=== PATIENT | female | born 1950 | race Caucasian/White ===

== ENCOUNTER → 2016-07-19 | Outpatient (CLI) | payer BC ==
--- NOTE | 2016-07-19 14:58 | US ---
EXAMINATION TYPE: US kidneys/renal and bladder DATE OF EXAM: 07/19/2016 COMPARISON: NONE CLINICAL HISTORY: R31.9 Hematuria. EXAM MEASUREMENTS: Right Kidney: 9.5 x 3.4 x 5.4 cm Left Kidney: 10.8 x 5.1 x 5.3 cm Right Kidney: No hydronephrosis or masses seen Left Kidney: No hydronephrosis or masses seen Bladder: wnl Bilateral Jets seen: Yes There is no evidence for hydronephrosis at this point in time. No nephrolithiasis is seen. No suspi cious solid or cystic masses are identified. The urinary bladder is anechoic. Bilateral ureteral je ts are seen. IMPRESSION: Unremarkable study if symptoms persist consider further investigation with CT urogram.
== END | disposition home or self-care (01) ==
LOC: RADUSWWP 14:02
PROVIDERS: ATTEND Family Medicine
DX: R31.9 Hematuria, unspecified (principal)
CPT/HCPCS: 76770

== ENCOUNTER → 2019-04-21 | Outpatient (CLI) | payer MEDICARE, OTHER | END | disposition home or self-care (01) | CPT/HCPCS: 70486 ==

== ENCOUNTER → 2019-07-01 | Outpatient (CLI) | payer MEDICARE, OTHER ==
--- NOTE | 2019-07-01 12:40 | MR ---
EXAMINATION TYPE: MR shoulder RT wo/w con DATE OF EXAM: 07/01/2019 COMPARISON: None HISTORY: Rt shoulder pain, 2 palpable masses, axillary/anterior, markers placed on both TECHNIQUE: Multiplanar, multisequence images of the right shoulder is performed with 5.5 mL intraveno us Gadavist gadolinium contrast. FINDINGS: There is a marker placed over the anterior soft tissues of the shoulder. There is a 5.7 cm intramuscular mass which demonstrates fat saturation. Findings felt to be suggestive of a lipoma or a typical lipoma. There is subcutaneous edema along the lateral margin of the shoulder which is nonspecific. There appe ars to be a complete rotator cuff tear with retraction to the level proximal to the AC joint. Intrasu bstance signal at the insertion of the subscapularis suspicious for at least partial tear although mo tion artifact limits assessment. A second marker was placed with no definable mass identified. There is shotty adenopathy in the axill a which has a benign appearance. Hypertrophic change of the AC joint noted. Bicipital tendon is well situated within the bicipital groove, however, the biceps tendon is not seen within the rotator interval and suspected to be torn. Assessment of bony labrum is limited due to motion artifact with no obvious tear. Suprascapular Notch has a normal appearance. There is a small joint effusion. Inferior glenohumeral ligament is intact. Small amount of fluid seen in the subacromial subdeltoid bursa. IMPRESSION: 1. The area of palpable abnormality anteriorly corresponds to 5.7 cm intramuscular mass most typical of a lipoma. Given it measures greater than 5 cm atypical lipoma also in the differential diagnosis. 2. The second area of palpable abnormality does not demonstrate definable mass. Occasionally there ca n be a lipoma with a imperceptible capsule which could influence its appearance by MRI. Follow-up ult rasound recommended. No definite mass by MRI. 3. Complete tear of the rotator cuff including the supraspinatus and infraspinatus tendons with retra ction. Near complete or complete tear of the subscapularis also suspected. 4. Nonvisualization of the biceps tendon within the rotator interval suspicious for tear.
== END | disposition home or self-care (01) ==
LOC: RADMRIMAIN 09:21
PROVIDERS: ATTEND Family Medicine
DX: D17.21 Benign lipomatous neoplasm of skin and subcutaneous tissue of right arm (principal); M75.121 Complete rotator cuff tear or rupture of right shoulder, not specified as traumatic; R22.31 Localized swelling, mass and lump, right upper limb
CPT/HCPCS: 73223; A9585

== ENCOUNTER 2021-09-06 06:14 | Day surgery (SDC) | payer MEDICARE, OTHER ==
[2021-09-02 15:41] VITALS: BMI 22.4
[~2021-09-06 06:14] MED LIST: LACTATED RINGERS 1,000 ML IV SCH; LIDOCAINE 1% (10MG/ML) FOR IV START INTRADERMA PRN
[2021-09-06 06:47] VITALS: TEMP 97.6
[2021-09-06] MEDS ORDERED: LIDOCAINE 2% INJ 20 MG/ML (2 ML VIAL) ONE (07:05)
[2021-09-06] MEDS ORDERED: PROPOFOL 10 MG/ML 20 ML VIAL IV ONE (07:05)
--- NOTE | 2021-09-06 07:23 | P.PCN ---
Date of Procedure: 09/06/21 Procedure(s) Performed: Brief history: Patient is a pleasant 71-year-old white female scheduled for an elective upper endoscopy as well as colonoscopy as a part of evaluation of long-standing history of GERD/chronic cough and screening for colon cancer Procedure performed: Esophagogastroduodenoscopy with biopsy Colonoscopy Preoperative diagnosis: Long-standing history of GERD Screening for colon cancer Anesthesia: MAC Procedure: After informed consent was obtained from the patient was brought into the endoscopy unit and IV sedation was administered by anesthesia under continuous monitoring. Initially upper endoscopy was done. The Olympus GF 160 video endoscope was inserted inserted into the mouth and esophagus intubated without any difficulty and was gradually advanced into the stomach and duodenum and carefully examined. The bulb and second part of the duodenum appeared normal. The scope was then withdrawn into the stomach adequately insufflated with air and upon careful examination the antrum and body, had multiple small gastric polyps in the biopsy. Mucosa of the cardia and fundus appeared normal. The scope was then withdrawn into the esophagus. The GE junction was located at 40 cm to the incisors. It appeared regular with no erythema erosions or ulcerations. Rest of the esophagus appeared normal. Patient tolerated the procedure well. At this time the patient continued to remain sedation. Initial digital rectal examination was normal. Olympus CF 160 video colonoscope was then inserted into the rectum and gradually advanced to the cecum without any difficulty. Careful examination was performed as the scope was gradually being withdrawn. The prep was excellent. The cecum, ascending colon, transverse colon, descending colon, sigmoid colon and rectum appeared normal. Retroflexion was performed in the rectum and no lesions were noted. Patient tolerated the procedure well. Impression: 1. Upper endoscopy revealed multiple small gastric polyps but no evidence of esophagitis or Jacobsen's esophagus 2. Colonoscopy was within normal limits with no evidence of colorectal neoplasia Recommendations: Findings of this examination were discussed with the patient as well as her family. She was advised to continue with omeprazole 20 mg daily and follow a ntireflux measures. Recommend repeat screening colonoscopy in 10 years.
[2021-09-06 07:30] VITALS: RESP 16
[2021-09-06 07:52] VITALS: BP 132/68; PULSE 67
== END 2021-09-06 08:16 | disposition home or self-care (01) ==
LOC: ORWHC2ENDO 06:14
PROVIDERS: ATTEND Internal Medicine Gastroenterology
DX: Z12.11 Encounter for screening for malignant neoplasm of colon (principal); K31.7 Polyp of stomach and duodenum; K21.9 Gastro-esophageal reflux disease without esophagitis; J32.9 Chronic sinusitis, unspecified; F41.9 Anxiety disorder, unspecified; J45.909 Unspecified asthma, uncomplicated; M19.90 Unspecified osteoarthritis, unspecified site; J33.9 Nasal polyp, unspecified; Z85.528 Personal history of other malignant neoplasm of kidney; Z90.5 Acquired absence of kidney; Z96.611 Presence of right artificial shoulder joint; Z98.890 Other specified postprocedural states; Z97.2 Presence of dental prosthetic device (complete) (partial); Z79.899 Other long term (current) drug therapy; Z88.6 Allergy status to analgesic agent
CPT/HCPCS: 88305; 43239; J2704; J2001; G0121

== ENCOUNTER → 2023-08-30 | Outpatient (CLI) | payer MEDICARE, OTHER ==
--- NOTE | 2023-09-03 11:16 | MM ---
Reason for Exam: Screening (asymptomatic). Last screening mammogram was performed 12 month(s) ago. Patient History: Menarche at age 13. First Full-Term at age 22. Postmenopausal. Maternal grandmother had breast cancer, age 70. Sister had breast cancer, age 60. Risk Values: Selina 5 year model risk: 3.7%. NCI Lifetime model risk: 9.9%. Prior Study Comparison: 02/13/2020 Bilateral MG 3D screening mammo w/cad, [facility]. 06/23/2021 Bilateral MG 3D screening mammo w/cad, [facility]. 08/24/2022 Bilateral MG 3D screening mammo w/cad, [facility]. Tissue Density: There are scattered areas of fibroglandular density. Findings: Analyzed By CAD. Right breast: There is no suspicious group of microcalcifications or new suspicious mass. Left breast: There is no suspicious group of microcalcifications or new suspicious mass. Overall Assessment: Negative, BI-RAD 1 Management: Screening Mammogram of both breasts in [address] [facility] will attempt to contact patient to return for supplemental views and ultrasound if indicated. Patient should continue monthly self-breast exams. A clinical breast exam by your physician is recommended on an annual basis. This exam should not preclude additional follow-up of suspicious palpable abnormalities. Note on Selina scores and lifetime risk: 1. A Selina score greater than 3% is considered moderate risk. If this is the case, consider specialist referral to assess eligibility for a risk reducing agent. 2. If overall lifetime risk for the development of breast cancer is 20% or higher, the patient may qualify for future screening with alternating mammogram and breast MRI. Electronically signed and approved by: Cameron Ramos DO
== END | disposition home or self-care (01) ==
LOC: RADMAMWWP 10:24
PROVIDERS: ATTEND Family Medicine
DX: Z12.31 Encounter for screening mammogram for malignant neoplasm of breast (principal); R92.323 Mammographic fibroglandular density, bilateral breasts; Z78.0 Asymptomatic menopausal state; Z80.3 Family history of malignant neoplasm of breast
CPT/HCPCS: 77063; 77067

== ENCOUNTER → 2023-11-13 | Outpatient (CLI) | payer MEDICARE, OTHER ==
--- NOTE | 2023-11-13 09:53 | US ---
EXAMINATION TYPE: US abdomen complete DATE OF EXAM: 11/13/2023 COMPARISON: NONE CLINICAL INDICATION: Female, 73 years old with history of R10.11 RUQ PAIN; Intermittent RLQ pain x co uple months, right kidney removed - renal CA TECHNIQUE: Grayscale and color Doppler imaging of the abdomen was performed. FINDINGS: EXAM MEASUREMENTS: Liver Length: 11.1 cm Gallbladder Wall: 0.1 cm CBD: 0.4 cm Spleen: 7.8 cm Left Kidney: 10.2 x 5.9 x 5.2 cm Pancreas: obscured by overlying midline bowel gas Liver: wnl Gallbladder: wnl Evidence for sonographic Riley's sign: no CBD: visualized portions wnl, limited by overlying bowel gas Spleen: visualized portions wnl, limited by overlying bowel gas Right Kidney: surgically absent Left Kidney: wnl Upper IVC: wnl Abd Aorta: wnl The liver is homogenous. The pancreas is obscured by overlying bowel gas. The intrahepatic portion of the IVC and proximal abdominal aorta are within normal limits. There is no evidence of cholelithias is. Common bile duct is unremarkable. The visualized portions of the pancreas are homogenous. The spleen is unremarkable. Right kidney surgically absent. No gross evidence of suspicious soft tissue w ithin the right nephrectomy bed. Left kidney appears unremarkable without evidence of hydronephrosis, renal lesion, or calculus. IMPRESSION: Limited exam due to overlying bowel gas. 1. No ultrasound evidence for an acute process. 2. Postsurgical changes from right nephrectomy. [facility], , 11/13/2023 9:50 AM
== END | disposition home or self-care (01) ==
LOC: RADUSWWP 07:22
PROVIDERS: ATTEND Family Medicine
DX: Z90.5 Acquired absence of kidney (principal)
CPT/HCPCS: 76700

== ENCOUNTER 2024-07-18 11:39 | Day surgery (SDC) | payer MEDICARE, OTHER ==
[2024-07-18 12:56] VITALS: TEMP 98.3
[2024-07-18 13:04] LABS: Glucose,Whole Blood 93 mg/dL (70-110)
[2024-07-18] MEDS ORDERED: PROPOFOL 10 MG/ML 20 ML VIAL IV ONE (14:01)
[2024-07-18] MEDS ORDERED: LIDOCAINE 2% (PF) 20 MG/ML 5 ML VIAL ONE (14:01)
[2024-07-18] MEDS: LACTATED RINGERS 1,000 ML IV ONE (14:07)
--- NOTE | 2024-07-18 14:11 | P.PCN ---
Date of Procedure: 07/18/24 Procedure(s) Performed: BRIEF HISTORY: Patient is a 74-year-old, pleasant, white female scheduled for endoscopy as a part of evaluation of GERD and chronic cough of several months duration. She has been on omeprazole 20 mg daily and Pepcid at bedtime and the symptoms are significantly improved.. PROCEDURE PERFORMED: Esophagogastroduodenoscopy with biopsy. PREOPERATIVE DIAGNOSIS: Functional history of GERD/chronic cough. IV sedation per anesthesia. PROCEDURE: After informed consent was obtained, the patient was brought into the endoscopy unit. IV sedation was administered by Anesthesia under continuous monitoring. Initially the Olympus GIF-140 video endoscope was inserted into the mouth. Esophagus intubated without any difficulty. It was gradually advanced into the stomach and duodenum and carefully examined. The bulb and the second part of the duodenum appeared normal. The scope at this time was withdrawn to the stomach, adequately insufflated with air, and upon careful examination, mucosa of the antrum, body, cardia and the fundus appeared normal. Multiple gastric polyps noted in the gastric body which were biopsied. The scope was then withdrawn into the esophagus. The GE junction was located at 36 cm from the incisors. There were 2 mm island of Jacobsen's appearing mucosa just proximal to the GE junction that was biopsied. The rest of the esophagus appeared normal. There were no erosions or ulcerations seen and the patient tolerated the procedure well. IMPRESSION: 1. Multiple gastric polyps in the gastric body status post biopsy. 2. 2 mm island of Jacobsen's appearing mucosa in the distal esophagus status post biopsy. RECOMMENDATIONS: The findings of this examination were discussed with the patient as well as her family. She was advised to follow the biopsy results. Continue omeprazole 40 mg in the morning and famotidine 20 mg at bedtime antireflux measures..
[2024-07-18] MEDS: IV FLUID CONTINUATION 1,000 ML IV ONE (14:15)
[2024-07-18 14:36] VITALS: BP 113/62; PULSE 83; RESP 16
== END 2024-07-18 15:15 | disposition home or self-care (01) ==
LOC: ORWHC2ENDO 11:39
PROVIDERS: ATTEND Internal Medicine Gastroenterology
DX: K31.7 Polyp of stomach and duodenum (principal); K22.70 Barrett's esophagus without dysplasia; K21.9 Gastro-esophageal reflux disease without esophagitis; E78.5 Hyperlipidemia, unspecified; J45.909 Unspecified asthma, uncomplicated; Z87.891 Personal history of nicotine dependence; Z85.528 Personal history of other malignant neoplasm of kidney; Z79.899 Other long term (current) drug therapy
CPT/HCPCS: 88305; 43239; J2704; J2003